=== PATIENT | female | born 1975 | race Caucasian/White ===

== ENCOUNTER 2019-11-22 21:25 | Emergency (ER) | payer SELFPAY ==
[~2019-11-22] VITALS: Ht 175.3 cm; Wt 96.2 kg
[2019-11-22] MEDS ORDERED: hydrOXYzine HCL 25 MG TABLET PO ONE (21:45)
[2019-11-22] MEDS ORDERED: IV NORMAL SALINE 1,000ML 1,000 ML IV ONE (21:45)
[2019-11-22] MEDS ORDERED: ONDANSETRON ODT 4 MG TAB.RAPDIS PO ONE (21:45)
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
[2019-11-22] MEDS ORDERED: HYDROcodone/APAP 5/325MG 1 TAB TABLET ONE (22:41)
[2019-11-22] MEDS ORDERED: HYDROcodone/APAP 5/325MG 1 TAB TABLET PO ONE (22:45)
[2019-11-22 23:15] LABS: BASO # 0.1 x10^3/uL (0.0-0.2); BASO % 1 % (0-3); EOS # 0.1 x10^3/uL (0.0-0.7); EOS % 1 % (0-3); HEMATOCRIT 42.6 % (36.0-47.0); HEMOGLOBIN 14.4 g/dL (12.0-15.5); LYMPH # 2.4 x10^3/uL (1.0-4.8); LYMPH % 32 % (24-48); MEAN CORPUSCULAR HEMOGLOBIN 31 pg (25-35); MEAN CORPUSCULAR HGB CONC 34 g/dL (31-37); MEAN CORPUSCULAR VOLUME 93 fL (79-100); MONO # 0.4 x10^3/uL (0.0-1.1); MONO % 5 % (0-9); NEUT # 4.6 x10^3uL (1.8-7.7); NEUT % 60 % (31-73); PLATELET COUNT 340 x10^3/uL (140-400); WHITE BLOOD COUNT 7.5 x10^3/uL (4.0-11.0)
[2019-11-22 23:25] LABS: CALCIUM 9.7 mg/dL (8.5-10.1); CREATININE 1.1 mg/dL (0.6-1.0); GFR 53.5; POTASSIUM 4.1 mmol/L (3.5-5.1)
[2019-11-22 23:29] LABS: BARBITURATES NEG (NEG); BENZODIAZEPINES POS (NEG); CANNABINOIDS NEG (NEG); COCAINE NEG (NEG); METHADONE NEG (NEG); OPIATES NEG (NEG); PHENCYCLIDINE NEG (NEG)
[2019-11-22 23:30] LABS: ALBUMIN 3.6 g/dL (3.4-5.0); TOTAL BILIRUBIN 0.8 mg/dL (0.2-1.0); TOTAL PROTEIN 7.3 g/dL (6.4-8.2)
[2019-11-22 23:32] LABS: AMPHETAMINE/METHAMPHETAMINE POS (NEG)
[2019-11-22 23:36] LABS: BACTERIA,URINE FEW /HPF (0-FEW); BILIRUBIN,URINE NEG (NEG); CLARITY,URINE HAZY; COLOR,URINE YELLOW; GLUCOSE,URINE NEG (NEG); NITRITE,URINE NEG (NEG); RBC,URINE 0 /HPF (0-2); SQUAMOUS EPITHELIAL CELL,UR OCC /LPF; UROBILINOGEN,URINE 0.2 mg/dL (0.2 mg/dL); WBC,URINE OCC /HPF (0-4)
[2019-11-23] VITALS: BP 123/88
== END 2019-11-23 00:50 | disposition home or self-care (01) ==
LOC: ER 21:25 → EEVIPCON 21:25 → ER 11-23 00:50
DX: F41.9 Anxiety disorder, unspecified (principal); F15.10 Other stimulant abuse, uncomplicated
CPT/HCPCS: 36415; 80053; 80307; 81001; 85025; 87086; 99284; Q0162; 87077; 87186

== ENCOUNTER 2019-12-03 22:19 | Emergency (ER) | payer SELFPAY ==
[~2019-12-03] VITALS: Ht 172.7 cm; Wt 90.9 kg
[2019-12-03 22:46] VITALS: BP 126/80
--- NOTE | 2019-12-03 22:58 | PHYS DOC ---
Past History Past Medical History: Anxiety, Ovarian Cyst, Other Additional Past Medical Histor: BLOOD CLOTS Past Surgical History: Appendectomy, Alcohol Use: None General Adult EDM: Chief Complaint: FACE PAIN HPI: HPI: The history was obtained from the patient. Patient is a 44-year-old female with PMH ovarian cancer who presents with a chief complaint of right-sided facial pain status post injury. Patient states just prior to arrival she turned quickly to her right striking the right side of her head against a ladder. She denies loss of consciousness. She does take Eliquis. Denies any acute vision or hearing changes. Denies neck pain. Does note some pain with jaw opening. Denies any jaw malocclusion. Denies any loose teeth. Denies pain with eye movement. No other complaints. Review of Systems: Review of Systems: Constitutional: Denies fever or chills Eyes: Denies change in visual acuity HENT: Denies nasal congestion or sore throat Respiratory: Denies cough or shortness of breath Cardiovascular: Denies chest pain or edema GI: Denies abdominal pain, nausea, vomiting, bloody stools or diarrhea : Denies dysuria Musculoskeletal: Denies back pain or joint pain Integument: Denies rash Neurologic: Denies headache, focal weakness or sensory changes Endocrine: Denies polyuria or polydipsia Lymphatic: Denies swollen glands Psychiatric: Denies depression or anxiety Heart Score: Risk Factors: Risk Factors: DM, Current or recent (<one month) smoker, HTN, HLP, family history of CAD, obesity. Risk Scores: Score 0 - 3: 2.5% MACE over next 6 weeks - Discharge Home Score 4 - 6: 20.3% MACE over next 6 weeks - Admit for Clinical Observation Score 7 - 10: 72.7% MACE over next 6 weeks - Early Invasive Strategies Allergies: Allergies: Allergies Coded Allergies Type Severity Reaction Last Updated Verified No Known Drug Allergies 11/23/19 No Physical Exam: PE: Physical Exam Trauma: Primary Survey: Airway: Intact. Speaks in normal voice and phonation. Breathing: Breath sounds are clear and equal bilaterally. Circulation: Regular rhythm, 2+ and symmetric radial, DP and PT pulses. Disability: GCS on arrival was 15. Pupils 3 mm, ERRL Exposure: Complete exposure obtained and described in detail below. Secondary Survey: General: Awake, alert, appropriate, and in no acute distress HENT: Tenderness palpation over the right periorbital region and inferior orbital region. TMs clear bilaterally, no hemotympanum. No periorbital tenderness or deformity. No obvious craniofacial trauma. Midface is stable. No apparent dental or tongue/oropharyngeal injury. No septal hematoma. Neck: C-spine: no midline tenderness. Without step-off, deformity, abrasion, ecchymosis, or other signs of trauma. Paraspinal musculature with no tenderness and/or hypertonicity. Eyes: Pupils 3 mm ERRL, EOMI grossly, no evidence of ocular trauma, conjunctivae normal Respiratory: CTAB without wheezing, rhonchi, or rales. No distress. Chest wall with no tenderness to palpation. No crepitus, ecchymosis, or flail segment present. Cardiovascular: Regular rhythm without murmurs noted. 2+ and symmetric radial, DP and PT pulses. GI: Soft, non-tender, non-distended Musculoskeletal: T-spine: no midline tenderness. Without step-off, deformity, abrasion, ecchymosis, or other signs of trauma. Paraspinal musculature with no tenderness and/or hypertonicity. L-spine: no midline tenderness. Without step-off, deformity, abrasion, ecchymosis, or other signs of trauma. Paraspinal musculature with no tenderness and/or hypertonicity. RUE: Active ROM, no obvious deformity, no gross weakness or sensory deficits, warm & well-perfused LUE: Active ROM, no obvious deformity, no gross weakness or sensory deficits, warm & well-perfused RLE: Active ROM, no obvious deformity, no gross weakness or sensory deficits, warm & well-perfused LLE: Active ROM, no obvious deformity, no gross weakness or sensory deficits, warm & well-perfused Integument: Without abrasions, contusions, or lacerations. Neurologic: GCS on arrival as noted above. No obvious focal motor or sensory deficits on examination. Gait not assessed due to acuity of trauma assessment. Current Patient Data: Vital Signs: Vital Signs Date Time Temp Pulse Resp B/P (MAP) Pulse Ox O2 Delivery O2 Flow Rate FiO2 12/03/19 23:39 18 12/03/19 22:46 92 20 126/80 (95) 97 Room Air EKG: EKG: [] Radiology/Procedures: Radiology/Procedures: [address] [address] IMAGING REPORT Signed PATIENT: CANDY PEGUERO ACCOUNT: [id number] : 1975 LOCATION: ER AGE: 44 SEX: F EXAM STATUS: REG ER ORD. PHYSICIAN: SHERYL LANIER DO REASON: Right sided temporal pain with swelling, injury, headache PROCEDURE: CT HEAD AND MAXILLOFACIAL WO CT HEAD AND MAXILLOFACIAL WO History: Reason: Right sided temporal pain with swelling, injury, headache / Spl. Instructions: / History: Comparison: None. Technique: Noncontrast CT imaging was performed of the head and maxillofacial. Coronal and sagittal reconstructions were performed. Exposure: One or more of the following individualized dose reduction techniques were utilized for this examination: 1. Automated exposure control 2. Adjustment of the mA and/or kV according to patient size 3. Use of iterative reconstruction technique. Findings: Head CT: No intracranial hemorrhage. No mass effect. No hydrocephalus. Extra-axial spaces are unremarkable. Maxillofacial CT: No acute maxillofacial fracture. Orbits are unremarkable. Paranasal sinuses and mastoid air cells are clear. No acute calvarial fracture. TMJ arthropathy. Impression: Head CT: 1. No acute intracranial abnormality. Maxillofacial CT: 1. No acute maxillofacial fracture. Electronically signed by: Vishnu Maldonado DO (12/03/2019 11:34 PM) [facility] DICTATED AND SIGNED BY: VISHNU MALDONADO DO DATE: 12/03/19 6727 CC: PCP,UNKNOWN; SHERYL LANIER DO ~ [] Course & Med Decision Making: Course & Med Decision Making Pertinent Labs and Imaging studies reviewed. (See chart for details) [] Patient is a 44-year-old female presents with chief complaint of right periorbital pain after turning into a ladder. CT imaging negative. Although she does take Eliquis for history of provoked lower extremity DVTs I do not feel she requires close observation given the low mechanism of injury and reassuring CT imaging. Patient is appropriate for discharge home. Return precautions discussed and understood. Instructed to follow-up with her primary care physician in the next 2 to 3 days. Stable for discharge. Alessandro Disclaimer: Alessandro Disclaimer: This electronic medical record was generated, in whole or in part, using a voice recognition dictation system. Departure Departure: Impression: Primary Impression: Head injury Qualified Codes: S09.90XA - Unspecified injury of head, initial encounter Disposition: 01 HOME/RESIDENCE PRIOR TO ADM Condition: STABLE Referrals: PCP,UNKNOWN (PCP) Patient Instructions: Head Injury, Adult Additional Instructions: Please follow-up with your primary care physician in the next 2 to 3 days. Scripts Ibuprofen (IBUPROFEN) 200 Mg Tablet 600 MG PO QIDPRN PRN for PAIN, #15 TAB Prov: SHERYL LANIER DO 12/03/19 Justification of Admission: Justification of Admission: Justification of Admission Dx: N/A SHERYL LANIER DO Dec 03, 2019 22:58
--- NOTE | 2019-12-03 23:37 | RAD ---
CT HEAD AND MAXILLOFACIAL WO History: Reason: Right sided temporal pain with swelling, injury, headache / Spl. Instructions: / History: Comparison: None. Technique: Noncontrast CT imaging was performed of the head and maxillofacial. Coronal and sagittal reconstructions were performed. Exposure: One or more of the following individualized dose reduction techniques were utilized for this examination: 1. Automated exposure control 2. Adjustment of the mA and/or kV according to patient size 3. Use of iterative reconstruction technique. Findings: Head CT: No intracranial hemorrhage. No mass effect. No hydrocephalus. Extra-axial spaces are unremarkable. Maxillofacial CT: No acute maxillofacial fracture. Orbits are unremarkable. Paranasal sinuses and mastoid air cells are clear. No acute calvarial fracture. TMJ arthropathy. Impression: Head CT: 1. No acute intracranial abnormality. Maxillofacial CT: 1. No acute maxillofacial fracture. Electronically signed by: Vishnu Stanton DO (12/03/2019 11:34 PM) [facility]
[2019-12-03] MEDS ORDERED: IBUP-1673 PO (23:44)
[2019-12-04] MEDS ORDERED: HYDROcodone/APAP 5/325MG 1 TAB TABLET PO ONE
== END 2019-12-03 23:45 | disposition home or self-care (01) ==
LOC: ER 22:19 → EEVIPCON 22:19 → ER 23:45
DX: S09.90XA Unspecified injury of head, initial encounter (principal); F41.9 Anxiety disorder, unspecified; W22.8XXA Striking against or struck by other objects, initial encounter; Y93.89 Activity, other specified; Y92.89 Other specified places as the place of occurrence of the external cause; Y99.8 Other external cause status
CPT/HCPCS: 70450; 70486; 99285-25

== ENCOUNTER 2019-12-20 09:57 | Emergency (ER) | payer SELFPAY ==
[~2019-12-20] VITALS: Ht 165.1 cm; Wt 77.2 kg
[~2019-12-20 09:57] MED LIST: IBUP-1673 PO
[2019-12-20] MEDS ORDERED: MORPHINE SULFATE 4 MG/ML DISP.SYRIN. IV ONE (10:30)
[2019-12-20] MEDS ORDERED: MORPHINE SULFATE 4 MG/ML DISP.SYRIN. ONE (10:30)
[2019-12-20] MEDS ORDERED: ONDANSETRON PF 4 MG/2 ML VIAL. ONE (10:30)
[2019-12-20] MEDS ORDERED: ONDANSETRON PF 4 MG/2 ML VIAL. IVP ONE (10:30)
[2019-12-20] MEDS ORDERED: IV NORMAL SALINE 1,000ML 1,000 ML IV ONE ×2 (10:30→13:30)
[2019-12-20 10:38] LABS: CALCIUM 8.5 mg/dL (8.5-10.1); CREATININE 1.3 mg/dL (0.6-1.0); GFR 44.1
[2019-12-20 10:42] LABS: BASO % 0 % (0-3); EOS # 0.1 x10^3/uL (0.0-0.7); EOS % 3 % (0-3); HEMATOCRIT 38.8 % (36.0-47.0); LYMPH % 35 % (24-48); MEAN CORPUSCULAR HEMOGLOBIN 31 pg (25-35); MEAN CORPUSCULAR HGB CONC 34 g/dL (31-37); MEAN CORPUSCULAR VOLUME 93 fL (79-100); MONO # 0.2 x10^3/uL (0.0-1.1); MONO % 4 % (0-9); NEUT # 3.2 x10^3uL (1.8-7.7); NEUT % 58 % (31-73); PLATELET COUNT 304 x10^3/uL (140-400); RED BLOOD COUNT 4.18 x10^6/uL (3.50-5.40); RED CELL DISTRIBUTION WIDTH 12.9 % (11.5-14.5); WHITE BLOOD COUNT 5.6 x10^3/uL (4.0-11.0)
[2019-12-20 10:44] LABS: ALBUMIN 3.2 g/dL (3.4-5.0); ALBUMIN/GLOBULIN RATIO 0.9 (1.0-1.7); TOTAL BILIRUBIN 0.8 mg/dL (0.2-1.0); TOTAL PROTEIN 6.6 g/dL (6.4-8.2)
--- NOTE | 2019-12-20 11:00 | PHYS DOC ---
Past History Past Medical History: Anxiety, Depression, Kidney Stones Additional Past Medical Histor: BLOOD CLOTS Past Surgical History: Appendectomy, Alcohol Use: None General Adult EDM: Chief Complaint: ABDOMINAL PAIN HPI: HPI: Patient is a 44-year-old female who presented to ER today for evaluation of right side abdominal pain for 2 days. Patient has history of kidney stones and ovarian cyst. Patient feel that the pain is similar to her previous kidney stone episode. Patient denies any cough or fever, no nausea vomiting, no diarrhea. Patient denies any chest pain or trouble breathing. Review of Systems: Review of Systems: Constitutional: Denies fever or chills Eyes: Denies change in visual acuity HENT: Denies nasal congestion or sore throat Respiratory: Denies cough or shortness of breath Cardiovascular: Denies chest pain or edema GI: Positive for abdominal pain, no nausea vomiting no diarrhea. : Denies dysuria Musculoskeletal: Denies back pain or joint pain Integument: Denies rash Neurologic: Denies headache, focal weakness or sensory changes Endocrine: Denies polyuria or polydipsia Lymphatic: Denies swollen glands Psychiatric: Denies depression or anxiety Heart Score: Risk Factors: Risk Factors: DM, Current or recent (<one month) smoker, HTN, HLP, family history of CAD, obesity. Risk Scores: Score 0 - 3: 2.5% MACE over next 6 weeks - Discharge Home Score 4 - 6: 20.3% MACE over next 6 weeks - Admit for Clinical Observation Score 7 - 10: 72.7% MACE over next 6 weeks - Early Invasive Strategies Current Medications: Current Meds: Current Medications Medications (Trade) Dose Ordered Sig/[facility] Start Time Stop Time Status Last Admin Dose Admin Morphine Sulfate (Morphine 4mg Syringe) 4 mg STK-MED ONCE 12/20/19 10:30 12/20/19 10:30 DC Ondansetron HCl (Zofran) 4 mg STK-MED ONCE 12/20/19 10:30 12/20/19 10:30 DC Sodium Chloride 1,000 ml @ 1,000 mls/hr 1X ONCE 12/20/19 10:30 12/20/19 11:29 12/20/19 10:32 1,000 MLS/HR Allergies: Allergies: Allergies Coded Allergies Type Severity Reaction Last Updated Verified No Known Drug Allergies 11/23/19 No Physical Exam: PE: Constitutional: Well developed, well nourished, no acute distress, non-toxic appearance. [] HENT: Normocephalic, atraumatic, bilateral external ears normal, oropharynx moist, no oral exudates, nose normal. [] Eyes: PERRLA, EOMI, conjunctiva normal, no discharge. [] Neck: Normal range of motion, no tenderness, supple, no stridor. [] Cardiovascular:Heart rate regular rhythm, no murmur [] Lungs & Thorax: Bilateral breath sounds clear to auscultation [] Abdomen: Bowel sounds normal, soft, There is tenderness to palpation on right side, no masses, no pulsatile masses. [] Skin: Warm, dry, no erythema, no rash. [] Back: No tenderness, no CVA tenderness. [] Extremities: No tenderness, no cyanosis, no clubbing, ROM intact, no edema. [] Neurologic: Alert and oriented X 3, normal motor function, normal sensory function, no focal deficits noted. [] Psychologic: Affect normal, judgement normal, mood normal. [] Current Patient Data: Labs: Laboratory Tests Test 12/20/19 10:09 White Blood Count 5.6 x10^3/uL (4.0-11.0) Red Blood Count 4.18 x10^6/uL (3.50-5.40) Hemoglobin 13.0 g/dL (12.0-15.5) Hematocrit 38.8 % (36.0-47.0) Mean Corpuscular Volume 93 fL (79-100) Mean Corpuscular Hemoglobin 31 pg (25-35) Mean Corpuscular Hemoglobin Concent 34 g/dL (31-37) Red Cell Distribution Width 12.9 % (11.5-14.5) Platelet Count 304 x10^3/uL (140-400) Neutrophils (%) (Auto) 58 % (31-73) Lymphocytes (%) (Auto) 35 % (24-48) Monocytes (%) (Auto) 4 % (0-9) Eosinophils (%) (Auto) 3 % (0-3) Basophils (%) (Auto) 0 % (0-3) Neutrophils # (Auto) 3.2 x10^3uL (1.8-7.7) Lymphocytes # (Auto) 2.0 x10^3/uL (1.0-4.8) Monocytes # (Auto) 0.2 x10^3/uL (0.0-1.1) Eosinophils # (Auto) 0.1 x10^3/uL (0.0-0.7) Basophils # (Auto) 0.0 x10^3/uL (0.0-0.2) Sodium Level 139 mmol/L (136-145) Potassium Level 4.0 mmol/L (3.5-5.1) Chloride Level 106 mmol/L (98-107) Carbon Dioxide Level 24 mmol/L (21-32) Anion Gap 9 (6-14) Blood Urea Nitrogen 18 mg/dL (7-20) Creatinine 1.3 mg/dL (0.6-1.0) H Estimated GFR (Cockcroft-Gault) 44.1 BUN/Creatinine Ratio 14 (6-20) Glucose Level 122 mg/dL (70-99) H Calcium Level 8.5 mg/dL (8.5-10.1) Total Bilirubin 0.8 mg/dL (0.2-1.0) Aspartate Amino Transferase (AST) 20 U/L (15-37) Alanine Aminotransferase (ALT) 28 U/L (14-59) Alkaline Phosphatase 72 U/L (46-116) Total Protein 6.6 g/dL (6.4-8.2) Albumin 3.2 g/dL (3.4-5.0) L Albumin/Globulin Ratio 0.9 (1.0-1.7) L Vital Signs: Vital Signs Date Time Temp Pulse Resp B/P (MAP) Pulse Ox O2 Delivery O2 Flow Rate FiO2 12/20/19 10:32 16 98 Room Air 12/20/19 10:11 97.2 92 110/70 (83) EKG: EKG: [] Radiology/Procedures: Radiology/Procedures: [][address] [address] IMAGING REPORT Signed PATIENT: CANDY PEGUERO ACCOUNT: [id number] : 1975 LOCATION: ER AGE: 44 SEX: F EXAM STATUS: REG ER ORD. PHYSICIAN: ASA GUSTAFSON DO REASON: RIGHT SIDE FLANK PAIN PROCEDURE: CT ABDOMEN PELVIS WO CONTRAST Examination: CT ABDOMEN PELVIS WO CONTRAST History: RIGHT SIDE FLANK PAIN Comparison/Correlation: None Findings: Axial images of the abdomen and pelvis were obtained without contrast. Sagittal and coronal reformatted images were provided. Lung bases are clear. Liver, spleen, pancreas, and right adrenal gland are normal. Left adrenal gland medial limb nodule is present measuring 2.6 cm diameter and is low attenuation as would be expected of a benign adenoma. Gallbladder fossa is unremarkable. Kidneys are unremarkable. No hydronephrosis and no hydroureter. No enlarged abdominal or pelvic lymph nodes. Moderate quantity of stool in the colon. No inflammatory change about the cecum. Appendix is not identified. No ascites or pelvic free fluid. No bowel obstruction or extraluminal gas. Bony structures are unremarkable. Impression: No radiopaque collecting system calculi or collecting system obstruction. No inflammation about the cecum. Small ovarian follicles are presumably physiologic. PQRS Compliance Statement: One or more of the following individualized dose reduction techniques were utilized for this examination: 1. Automated exposure control 2. Adjustment of the mA and/or kV according to patient size 3. Use of iterative reconstruction technique Electronically signed by: Pradip Klein MD (12/20/2019 12:23 PM) [id number] DICTATED AND SIGNED BY: PRADIP KLEIN MD DATE: 12/20/19 1223 CC: HAYES,STAFF; ASA GUSTAFSON DO ~ Course & Med Decision Making: Course & Med Decision Making Pertinent Labs and Imaging studies reviewed. (See chart for details) Patient is a 44-year-old female who presented to ED for right side abdominal pain, CT scan of her abdomen and pelvis did not show any acute problem. Patient will be discharged home. Dragon Disclaimer: FanSnap Disclaimer: This electronic medical record was generated, in whole or in part, using a voice recognition dictation system. Departure Departure: Impression: Primary Impression: Abdominal pain Disposition: 01 HOME/RESIDENCE PRIOR TO ADM Condition: STABLE Referrals: NON,STAFF (PCP) please follow up with your doctor as needed next week Patient Instructions: Abdominal Pain Additional Instructions: Thank you for visiting our Emergency Department. We appreciate you trusting us with your care. If any additional problems come up don't hesitate to return to visit us. Please follow up with your primary care provider so they can plan additional care if needed and know about the problem that you had. If symptoms worsen come back to the Emergency Department. Any concerning symptoms that start such as chest pain, shortness of air, weakness or numbness on one side of the body, running high fevers or any other concerning symptoms return to the ER. Scripts Ondansetron Hcl (ZOFRAN) 4 Mg Tablet 1 TAB PO Q6HRS PRN for NAUSEA, #20 TAB Prov: ASA GUSTAFSON DO 12/20/19 Naproxen Sodium (ANAPROX DS) 550 Mg Tablet 1 TAB PO BID PRN for PAIN for 15 Days, #30 TAB 0 Refills Prov: ASA GUSTAFSON DO 12/20/19 ASA GUSTAFSON DO Dec 20, 2019 11:00
--- NOTE | 2019-12-20 12:26 | RAD ---
Examination: CT ABDOMEN PELVIS WO CONTRAST History: RIGHT SIDE FLANK PAIN Comparison/Correlation: None Findings: Axial images of the abdomen and pelvis were obtained without contrast. Sagittal and coronal reformatted images were provided. Lung bases are clear. Liver, spleen, pancreas, and right adrenal gland are normal. Left adrenal gland medial limb nodule is present measuring 2.6 cm diameter and is low attenuation as would be expected of a benign adenoma. Gallbladder fossa is unremarkable. Kidneys are unremarkable. No hydronephrosis and no hydroureter. No enlarged abdominal or pelvic lymph nodes. Moderate quantity of stool in the colon. No inflammatory change about the cecum. Appendix is not identified. No ascites or pelvic free fluid. No bowel obstruction or extraluminal gas. Bony structures are unremarkable. Impression: No radiopaque collecting system calculi or collecting system obstruction. No inflammation about the cecum. Small ovarian follicles are presumably physiologic. PQRS Compliance Statement: One or more of the following individualized dose reduction techniques were utilized for this examination: 1. Automated exposure control 2. Adjustment of the mA and/or kV according to patient size 3. Use of iterative reconstruction technique Electronically signed by: Pradip Rodriguez MD (12/20/2019 12:23 PM) [id number]
[2019-12-20 12:39] LABS: BACTERIA,URINE 0 /HPF (0-FEW); BILIRUBIN,URINE NEG (NEG); CLARITY,URINE HAZY; COLOR,URINE YELLOW; GLUCOSE,URINE NEG (NEG); NITRITE,URINE NEG (NEG); SQUAMOUS EPITHELIAL CELL,UR MANY /LPF; UROBILINOGEN,URINE 0.2 mg/dL (0.2 mg/dL)
[2019-12-20] MEDS ORDERED: KETOROLAC 30 MG/ML VIAL. IVP ONE (13:30)
[2019-12-20] MEDS ORDERED: NAPR-682 PO (13:36)
[2019-12-20] MEDS ORDERED: ONDA4TAB7 PO (13:36)
[2019-12-20 14:06] VITALS: BP 95/57
[2019-12-21] MEDS ORDERED: IBUP800T19 PO (18:22)
== END 2019-12-20 14:17 | disposition home or self-care (01) ==
LOC: ER 09:57
DX: R10.9 Unspecified abdominal pain (principal); Z87.442 Personal history of urinary calculi; Z90.89 Acquired absence of other organs; Z98.890 Other specified postprocedural states
CPT/HCPCS: 36415; 74176; 80053; 81001; 84702; 85025; 96361; 96374; 96375; 99285; J1885; J2270; J2405; J7030

== ENCOUNTER → 2019-12-21 | Emergency (ER) | payer SELFPAY ==
[2019-12-20 14:06] VITALS: BP 95/57
[~2019-12-21] VITALS: Ht 165.1 cm; Wt 77.2 kg
[~2019-12-21] MED LIST changes: +IBUP800T19 PO; +KETOROLAC 60 MG/2 ML VIAL. IM ONE; +MAGNESIUM CITRATE 296 ML SOLUTION. PO ONE; +NAPR-682 PO; +ONDA4TAB7 PO; +ONDANSETRON ODT 4 MG TAB.RAPDIS ONE
--- NOTE | 2019-12-21 17:38 | RAD ---
INDICATION: Reason: RIGHT SIDE FLANK PAIN, RIGHT SIDE CHEST PAIN / Spl. Instructions: / History: COMPARISON: December 20, 2019 IMPRESSION: 4 views of the chest and abdomen are obtained. Cardiac silhouette is unremarkable. No definite focal airspace consolidation. Moderate stool throughout the colon. Air scattered throughout the large and small bowel in a grossly nonobstructive pattern. Electronically signed by: Mariusz Calderon MD (12/21/2019 5:35 PM) [id number]
--- NOTE | 2019-12-21 18:11 | PHYS DOC ---
Past History Past Medical History: Anxiety, Depression, Kidney Stones Additional Past Medical Histor: BLOOD CLOTS Past Surgical History: Appendectomy, Alcohol Use: None General Adult EDM: Chief Complaint: FLANK PAIN HPI: HPI: Patient is a 44-year-old female who was brought here by EMS due to right-sided flank pain. Patient was just seen by this physician yesterday for the same symptom, her lab work probably normal, CT scan her abdomen pelvic did not show any acute problem. Patient said now her pain it radiates up to her right shoulder. It hurt when she take a deep breath or cough. Patient denies any fever, no nausea vomiting. Review of Systems: Review of Systems: Constitutional: Denies fever or chills Eyes: Denies change in visual acuity HENT: Denies nasal congestion or sore throat Respiratory: Denies cough or shortness of breath Cardiovascular: Denies chest pain or edema GI: RIGHT SIDE FLANK PAIN, RIGHT SIDE SHOULDER PAIN, NO NAUSEA OR VOMITING, NO DIARRHEA. : Denies dysuria Musculoskeletal: Denies back pain or joint pain Integument: Denies rash Neurologic: Denies headache, focal weakness or sensory changes Endocrine: Denies polyuria or polydipsia Lymphatic: Denies swollen glands Psychiatric: Denies depression or anxiety Heart Score: Risk Factors: Risk Factors: DM, Current or recent (<one month) smoker, HTN, HLP, family hi story of CAD, obesity. Risk Scores: Score 0 - 3: 2.5% MACE over next 6 weeks - Discharge Home Score 4 - 6: 20.3% MACE over next 6 weeks - Admit for Clinical Observation Score 7 - 10: 72.7% MACE over next 6 weeks - Early Invasive Strategies Current Medications: Current Meds: Current Medications Medications (Trade) Dose Ordered Sig/Syed Start Time Stop Time Status Last Admin Dose Admin Ketorolac Tromethamine (Toradol Im) 60 mg 1X ONCE 12/21/19 17:15 12/21/19 17:16 DC 12/21/19 17:15 60 MG Magnesium Citrate (Citroma) 296 ml 1X ONCE 12/21/19 18:00 12/21/19 18:02 DC Ondansetron HCl (Zofran Odt) 4 mg STK-MED ONCE 12/21/19 17:34 12/21/19 17:34 DC Allergies: Allergies: Allergies Coded Allergies Type Severity Reaction Last Updated Verified No Known Drug Allergies 11/23/19 No Physical Exam: PE: Constitutional: Well developed, well nourished, no acute distress, non-toxic appearance. [] HENT: Normocephalic, atraumatic, bilateral external ears normal, oropharynx moist, no oral exudates, nose normal. [] Eyes: PERRLA, EOMI, conjunctiva normal, no discharge. [] Neck: Normal range of motion, no tenderness, supple, no stridor. [] Cardiovascular:Heart rate regular rhythm, no murmur [] Lungs & Thorax: Bilateral breath sounds clear to auscultation [] Abdomen: Bowel sounds normal, soft, no tenderness, no masses, no pulsatile masses. [] Skin: Warm, dry, no erythema, no rash. [] Back: No tenderness, no CVA tenderness. [] Extremities: No tenderness, no cyanosis, no clubbing, ROM intact, no edema. [] Neurologic: Alert and oriented X 3, normal motor function, normal sensory function, no focal deficits noted. [] Psychologic: Affect normal, judgement normal, mood normal. [] Current Patient Data: Labs: Current Medications Medications (Trade) Dose Ordered Sig/Syed Route PRN Reason Start Time Stop Time Status Last Admin Dose Admin Ketorolac Tromethamine (Toradol Im) 60 mg 1X ONCE IM 12/21/19 17:15 12/21/19 17:16 DC 12/21/19 17:15 60 MG Ondansetron HCl (Zofran Odt) 4 mg STK-MED ONCE .ROUTE 12/21/19 17:34 12/21/19 17:34 DC Magnesium Citrate (Citroma) 296 ml 1X ONCE PO 12/21/19 18:00 12/21/19 18:02 DC EKG: EKG: [] Radiology/Procedures: Radiology/Procedures: [][address] [id number] IMAGING REPORT Signed PATIENT: CANDY PEGUERO ACCOUNT: [id number] : 1975 LOCATION: ER AGE: 44 SEX: F EXAM STATUS: PRE ER ORD. PHYSICIAN: GUSTAFSON,PETER T DO REASON: RIGHT SIDE FLANK PAIN, RIGHT SIDE CHEST PAIN PROCEDURE: ACUTE ABDOMEN SERIES INDICATION: Reason: RIGHT SIDE FLANK PAIN, RIGHT SIDE CHEST PAIN / Spl. Instructions: / History: COMPARISON: December 20, 2019 IMPRESSION: 4 views of the chest and abdomen are obtained. Cardiac silhouette is unremarkable. No definite focal airspace consolidation. Moderate stool throughout the colon. Air scattered throughout the large and small bowel in a grossly nonobstructive pattern. Electronically signed by: Mike Calderon MD (12/21/2019 5:35 PM) [id number] DICTATED AND SIGNED BY: MIKE CALDERON MD DATE: 12/21/19 1735 CC: NON,STAFF; ASA GUSTAFSON DO ~ Course & Med Decision Making: Course & Med Decision Making Pertinent Labs and Imaging studies reviewed. (See chart for details) [] Dragon Disclaimer: Dragon Disclaimer: This electronic medical record was generated, in whole or in part, using a voice recognition dictation system. Departure Departure: Impression: Primary Impression: Constipation Additional Impression: Flank pain Disposition: 01 HOME/RESIDENCE PRIOR TO ADM Condition: STABLE Referrals: NON,STAFF (PCP) FOLLOW UP WITH YOUR DOCTOR NEXT WEEK Patient Instructions: Constipation, Adult, Flank Pain Scripts Ibuprofen (IBUPROFEN) 800 Mg Tablet 1 TAB PO TID PRN for PAIN, #20 TAB 1 Refill Prov: ASA GUSTAFSON DO 12/21/19 ASA GUSTAFSON DO Dec 21, 2019 18:11
== END ==
LOC: ER 17:05
DX: K59.00 Constipation, unspecified (principal); M25.511 Pain in right shoulder; Z87.442 Personal history of urinary calculi; Z90.89 Acquired absence of other organs; Z98.890 Other specified postprocedural states
CPT/HCPCS: 74022; 96372; 99283; J1885